=== PATIENT | female | born 1990 ===

== ENCOUNTER → 2018-07-16 | Outpatient (CLI) | payer OTHER ==
[~2018-07-16] VITALS: Ht 162.6 cm; Wt 133.8 kg
[~2018-07-16] MED LIST: CAMILA0.35 MG PO; MEDROLDOSEPACK PO; MOBIC15 MG PO
[2018-07-16 14:22] VITALS: BP 130/79
--- NOTE | 2018-07-16 14:32 | NUR ---
[facility] Assessment: 1. History of Osteoarthritis: NO History of Rheumatoid Arthritis: NO 2. Height: 5 ft. 4 in. 162.6 cm. Weight: 295.0 lb. oz. 133.812 kg. Patient's BMI: 50.6 3. Vital Signs: BP: 130/79 Pulse: 80 Resp: 16 Temp: 02 Sat: 99 ECG Mon: 4. Pain Intensity: 2 5. Fall Risk: Dizziness: N Needs help standing or walking: N Fallen in the last 3 months: N Fall risk comments: 6. Patient on Blood Thinner: None 7. History of Hypertension: N 8. Opioid Therapy greater than 6 weeks: N Opiate Contract Signed: 9. Risk Assessment Tool Provided: 10. Functional Assessment Tool: 11. Recreational Drug Use: Never Drug Type: Tobacco Use: Never Smoker Tobacco Type: Amount or Packs/day: How Many Years: Alcohol Use: Yes Frequency: Special Occasions Quant:
== END ==
LOC: PAIN 07:08
DX: M54.5 Low back pain (principal); M79.652 Pain in left thigh; Z79.899 Other long term (current) drug therapy